=== PATIENT | female | born 1965 | race Asian ===

== ENCOUNTER 2016-10-21 05:59 | Inpatient (IN) | payer BC ==
[~2016-10-21 05:59] MED LIST: CENTRUM COMPLE1 EAC1 PO; CLARITIN10 M6 PO; FISH OIL PO; HYDROCODON-ACE1 EA16 PO; LYRICA50 MG/CAP PO; NEULASTA; NEUPOGEN; PRINIVIL5 M1 PO; TYLENOL EXTRA500 M1 PO; VIT PO; XANAX0.5 M1 PO; ZOFRAN4 M2 PO
[2016-10-21 06:41] LABS: ANION GAP 13 mmol/L (0-20); BLOOD UREA NITROGEN 5 mg/dl (6-24); CALCIUM 9.5 mg/dl (8.5-10.5); CARBON DIOXIDE-VENOUS 24 mmol/L (22-32); CHLORIDE 109 mmol/l (96-110); CREATININE 0.68 mg/dl (0.50-1.10); GLUCOSE 122 mg/dL (70-110); POTASSIUM 3.7 mmol/L (3.7-5.1); SODIUM 142 mmol/L (135-145); eGFR VALUE FOR BLACK >90 mL/Min
[2016-10-21 13:25] LABS: HCT-HEMATOCRIT 32.7 % (34.0-49.0); HGB-HEMOGLOBIN 10.8 gm/dl (12.0-15.5); MCV (MEAN CELL VOLUME) 94.5 fl (82.0-96.0)
[2016-10-22 03:35] LABS: HCT-HEMATOCRIT 28.8 % (34.0-49.0); HGB-HEMOGLOBIN 9.7 gm/dl (12.0-15.5); IMMATURE GRANULOCYTES ABSOLUTE 0.01 tho/cmm (0-0.03); IMMATURE GRANULOCYTES PERCENT 0.1 % (0-0.3); LYMPH % 7.7 % (20-45); LYMPH ABSOLUTE COUNT 0.6 tho/cmm (0.8-4.5); MCH (MEAN CORPUSCULAR HGB) 31.3 pg (28.0-32.0); MCHC MEAN CORPUSCULAR HGB CONC 33.7 % (32.0-36.0); MCV (MEAN CELL VOLUME) 92.9 fl (82.0-96.0); MEAN PLATELET VOLUME 8.6 cmc (9.4-12.4); MONO % 11.1 % (0-12); MONOCYTE ABSOLUTE COUNT 0.8 tho/cmm (0.0-1.2); NEUTROPHIL ABSOLUTE COUNT 5.8 tho/cmm (1.6-8.0); NEUTROPHIL-AUTOMATED 5.8 tho/cmm (1.6-8.0); NEUTROPHILS % 81.1 % (40-80); PLATELET COUNT 99 tho/cmm (150-450); RED CELL DISTRIBUTION WIDTH 14.4 % (12.4-16.4); WHITE BLOOD COUNT 7.1 tho/cmm (4.0-10.0)
[2016-10-22 04:04] LABS: ANION GAP 12 mmol/L (0-20); BLOOD UREA NITROGEN 11 mg/dl (6-24); CALCIUM 7.8 mg/dl (8.5-10.5); CARBON DIOXIDE-VENOUS 25 mmol/L (22-32); CHLORIDE 110 mmol/l (96-110); CREATININE 0.59 mg/dl (0.50-1.10); GLUCOSE 136 mg/dL (70-110); POTASSIUM 3.8 mmol/L (3.7-5.1); SODIUM 143 mmol/L (135-145); eGFR VALUE FOR BLACK >90 mL/Min
--- NOTE | 2016-10-22 21:33 | NUR ---
VN ROUNDING-PATIENT IS DOING OK WITH PAIN CONTROL SHE HAS AN EPIDURAL. SHE SAYS SHE HAS BEEN UP WALKING. PATIENT IS SCRATCHING HERSELF WE ARE TALKING AND STATES THAT SHE HAS BEEN ITCHING SO I TOLD HER WOULD ASK HER NURSE TO BRING IN SOME BENADRYL FOR HER. SHE ALSO MENTIONED HER IV IS HURTING-ALSO PAGED NURSE TO LOOK AT HER IV. NO OTHER QUESTIONS OR CONCERNS AT THIS TIME. CHART REVIEWED
[2016-10-23 05:25] LABS: BASO % 0.1 % (0-2); EOS % 0.1 % (0-7); HGB-HEMOGLOBIN 7.7 gm/dl (12.0-15.5); IMMATURE GRANULOCYTES ABSOLUTE 0.01 tho/cmm (0-0.03); IMMATURE GRANULOCYTES PERCENT 0.1 % (0-0.3); LYMPH % 8.9 % (20-45); LYMPH ABSOLUTE COUNT 0.6 tho/cmm (0.8-4.5); MCH (MEAN CORPUSCULAR HGB) 31.4 pg (28.0-32.0); MCV (MEAN CELL VOLUME) 93.9 fl (82.0-96.0); MEAN PLATELET VOLUME 8.3 cmc (9.4-12.4); MONO % 7.4 % (0-12); MONOCYTE ABSOLUTE COUNT 0.5 tho/cmm (0.0-1.2); NEUTROPHIL ABSOLUTE COUNT 5.6 tho/cmm (1.6-8.0); NEUTROPHIL-AUTOMATED 5.6 tho/cmm (1.6-8.0); NEUTROPHILS % 83.4 % (40-80); PLATELET COUNT 78 tho/cmm (150-450); RED BLOOD COUNT 2.45 mil/cmm (4.00-5.20); RED CELL DISTRIBUTION WIDTH 14.6 % (12.4-16.4); WHITE BLOOD COUNT 6.8 tho/cmm (4.0-10.0)
[2016-10-23 05:36] LABS: MCHC MEAN CORPUSCULAR HGB CONC 33.5 % (32.0-36.0)
[2016-10-23 06:06] LABS: CHLORIDE 111 mmol/l (96-110); POTASSIUM 3.9 mmol/L (3.7-5.1); SODIUM 145 mmol/L (135-145)
[2016-10-23 06:21] LABS: ANION GAP 11 mmol/L (0-20); BLOOD UREA NITROGEN 7 mg/dl (6-24); CALCIUM 7.9 mg/dl (8.5-10.5); CARBON DIOXIDE-VENOUS 27 mmol/L (22-32); CREATININE 0.44 mg/dl (0.50-1.10); GLUCOSE 126 mg/dL (70-110); eGFR VALUE FOR BLACK >90 mL/Min
--- NOTE | 2016-10-23 14:15 | NUR ---
virtual care note: visited w/ pt. has family at bedside. states she will be getting an infusion of PRBC's due to her lower hgb resulted this morning. encouraged her to get up and move/ambulate-she is agreeable to this. feels dizzy on occasion, also c/o some tiredness. can have hard candies-has lifesaver candies at bedside. also can have regulated amounts of clear liquids per Dr Baltazar's orders. will continue to monitor. has no questions for me at this time. electronic chart reviewed.
--- NOTE | 2016-10-24 14:45 | NUR ---
virtual care note: checked in on pt at this time. she talks to me about her diet--taking on 4 ounces of clear liquids every few hours. according to the orders from Dr Baltazar, this is correct and I verify this with her. Possible to increase her intake starting tomorrow if she's able to tolerate todays liquid intake. states her epidural site is "itchy" but is tolerable. no further needs. encouraged ambulation-states she has been up for a few walks already today. also encouraged use of IS, which is at bedside w/i reach. will continue to monitor. electronic chart reviewed.
[2016-10-25 05:33] LABS: BASO % 0.3 % (0-2); EOS % 6.2 % (0-7); EOSINOPHIL ABSOLUTE COUNT 0.2 tho/cmm (0.0-0.7); HCT-HEMATOCRIT 33.2 % (34.0-49.0); IMMATURE GRANULOCYTES ABSOLUTE 0.03 tho/cmm (0-0.03); IMMATURE GRANULOCYTES PERCENT 0.8 % (0-0.3); LYMPH % 12.9 % (20-45); LYMPH ABSOLUTE COUNT 0.5 tho/cmm (0.8-4.5); MCH (MEAN CORPUSCULAR HGB) 30.6 pg (28.0-32.0); MCHC MEAN CORPUSCULAR HGB CONC 33.1 % (32.0-36.0); MCV (MEAN CELL VOLUME) 92.5 fl (82.0-96.0); MEAN PLATELET VOLUME 9.4 cmc (9.4-12.4); MONO % 11.5 % (0-12); MONOCYTE ABSOLUTE COUNT 0.4 tho/cmm (0.0-1.2); NEUTROPHIL ABSOLUTE COUNT 2.4 tho/cmm (1.6-8.0); NEUTROPHIL-AUTOMATED 2.4 tho/cmm (1.6-8.0); NEUTROPHILS % 68.3 % (40-80); PLATELET COUNT 113 tho/cmm (150-450); RED BLOOD COUNT 3.59 mil/cmm (4.00-5.20); WHITE BLOOD COUNT 3.6 tho/cmm (4.0-10.0)
[2016-10-25 05:43] LABS: ANION GAP 10 mmol/L (0-20); BLOOD UREA NITROGEN 3 mg/dl (6-24); CALCIUM 8.4 mg/dl (8.5-10.5); CARBON DIOXIDE-VENOUS 29 mmol/L (22-32); CHLORIDE 110 mmol/l (96-110); GLUCOSE 107 mg/dL (70-110); SODIUM 145 mmol/L (135-145); eGFR VALUE FOR BLACK >90 mL/Min
--- NOTE | 2016-10-25 15:57 | NUR ---
VIRTUAL CARE NOTE: PT RESTING ON BED, STATES DOING OK TODAY. PT CALLED WANTS THE DRESSING CHANGE ON HER ABD INCISION. PLAN OF CARE DISCUSSED WITH PT, ENCOURAGED AMBULATION AND DOING I.S. AND LEARNING OSTOMY CARE. DC PLAN REVIEWED PT WILL HAVE C SET UP AT DISCHARGE. PT DENIES FURTHER NEEDS OR CONCERNS.
[2016-10-26 06:16] LABS: BASO % 0.6 % (0-2); EOS % 5.2 % (0-7); EOSINOPHIL ABSOLUTE COUNT 0.2 tho/cmm (0.0-0.7); HCT-HEMATOCRIT 32.7 % (34.0-49.0); HGB-HEMOGLOBIN 10.7 gm/dl (12.0-15.5); IMMATURE GRANULOCYTES ABSOLUTE 0.02 tho/cmm (0-0.03); IMMATURE GRANULOCYTES PERCENT 0.6 % (0-0.3); LYMPH ABSOLUTE COUNT 0.6 tho/cmm (0.8-4.5); MCH (MEAN CORPUSCULAR HGB) 29.9 pg (28.0-32.0); MCHC MEAN CORPUSCULAR HGB CONC 32.7 % (32.0-36.0); MCV (MEAN CELL VOLUME) 91.3 fl (82.0-96.0); MEAN PLATELET VOLUME 8.7 cmc (9.4-12.4); MONO % 11.6 % (0-12); MONOCYTE ABSOLUTE COUNT 0.4 tho/cmm (0.0-1.2); NEUTROPHIL ABSOLUTE COUNT 2.3 tho/cmm (1.6-8.0); NEUTROPHIL-AUTOMATED 2.3 tho/cmm (1.6-8.0); PLATELET COUNT 153 tho/cmm (150-450); RED BLOOD COUNT 3.58 mil/cmm (4.00-5.20); RED CELL DISTRIBUTION WIDTH 14.5 % (12.4-16.4); WHITE BLOOD COUNT 3.4 tho/cmm (4.0-10.0)
[2016-10-26 06:27] LABS: ANION GAP 13 mmol/L (0-20); BLOOD UREA NITROGEN 4 mg/dl (6-24); CALCIUM 8.6 mg/dl (8.5-10.5); CARBON DIOXIDE-VENOUS 29 mmol/L (22-32); CHLORIDE 105 mmol/l (96-110); CREATININE 0.45 mg/dl (0.50-1.10); GLUCOSE 102 mg/dL (70-110); POTASSIUM 3.8 mmol/L (3.7-5.1); SODIUM 143 mmol/L (135-145); eGFR VALUE FOR BLACK >90 mL/Min
--- NOTE | 2016-10-26 22:02 | NUR ---
VIRTUAL CARE NOTE: PT. IN BED WITH FAMILY AT SIDE. PT. STATES PAIN IS TOLERABLE AND HAD EATEN SOME FOOD. HAS BEEN WALKING IN THE [place]. SHE EXPRESSES SHE FEELS DOWN OR SAD AT TIMES ABOUT THE BAG. VERBAL ENCOURAGMENT GIVEN, AND EDUCATION THAT THE FEELINGS SHE HAD IS NORMAL. HASN'T WORKED WITH HER OSTOMY YET. ENCOURAGED TO WATCH STAFF AND WHEN FEELS ABLE TO TRY WITH CARES. EDUCATION ALSO PROVIDED ABOUT EATING SLOWLY AND MAYBE TRYING FREQUENT SMALL MEALS IF IS UNCOMFORTABLE WITH SUCH LARGE AMOUNTS. ENCOURAGEMENT GIVEN TO KEEP UP GREAT WORK OF WALKING AND USING I.S. HAS BEEN DOING AND INSTRUCTED TO CALL FOR FURTHER NEEDS. STATES VERBAL AGREEMENT.
[2016-10-27 05:51] LABS: HGB-HEMOGLOBIN 11.5 gm/dl (12.0-15.5); PLATELET COUNT 162 tho/cmm (150-450)
[2016-10-28] MEDS ORDERED: SULFAMYLON60 GM TOP (14:19)
[2016-10-28] MEDS ORDERED: NORCO 7.5-3251 EACH PO (14:20)
[2016-10-28] MEDS ORDERED: STOP HOME MEDICATION (14:21)
--- NOTE | 2016-10-28 15:06 | NUR ---
VIRTUAL CARE NOTE: PT DRESSED READY FOR DISCHARGE INSTRUCTIONS, PT'S SISTER AT BEDSIDE. INFORMATION GIVEN TO HER, ALL QUESTIONS ANSWERED TO PT AND SISTER. PT WILL HAVE [facility] TO FOLLOW WITH CARES AT HOME. INFORMED FLOOR NURSE DISCHARGE TEACHING DONE.
[2017-03-03] MEDS ORDERED: CELEXA10 M1 PO (01:30)
[2017-03-03] MEDS ORDERED: CELEXA20 M2 PO (01:31)
[2017-03-03] MEDS ORDERED: HYDROCODON-ACE1 EA16 PO (13:01)
[2017-03-03] MEDS ORDERED: OMEPRAZOLE20 M3 PO (13:01)
[2017-03-03] MEDS ORDERED: READI CAT PO (14:12)
[2017-03-07] MEDS ORDERED: ROBITUSSIN LON118 M1 PO (12:16)
[2017-03-07] MEDS ORDERED: TESSALON PERLE100 M1 PO (12:17)
== END 2016-10-28 15:10 | DRG 330 ==
LOC: SHSA 05:59 → ORW 07:50 → PACU 12:33 → 5WD 15:30
PROVIDERS: Anesthesiology; Hospitalist; ADMIT Colon & Rectal Surgery
PROC: 0DTQ0ZZ Resection of Anus, Open Approach (ICD-10-PCS; principal; 2016-10-21)
PROC: 0DTN0ZZ Resection of Sigmoid Colon, Open Approach (ICD-10-PCS; 2016-10-21)
PROC: 0DTP0ZZ Resection of Rectum, Open Approach (ICD-10-PCS; 2016-10-21)
PROC: 0UT90ZZ Resection of Uterus, Open Approach (ICD-10-PCS; 2016-10-21)
PROC: 0UT70ZZ Resection of Bilateral Fallopian Tubes, Open Approach (ICD-10-PCS; 2016-10-21)
DX: C20 Malignant neoplasm of rectum (principal); C79.60 Secondary malignant neoplasm of unspecified ovary; E78.5 Hyperlipidemia, unspecified; F41.9 Anxiety disorder, unspecified; I10 Essential (primary) hypertension
CPT/HCPCS: C1751; J0131; J0690; J1170; J1200; J1650; J2250; J2405; J2795; J3010; J3480; J7050; J7121; P9016